=== PATIENT | female | born 1975 | race American Indian/Alaskan Native ===

== ENCOUNTER 2019-04-21 13:35 | Emergency (ER) | payer OTHER ==
[2019-04-21] MEDS ORDERED: IBUPROFEN 800 MG TAB PO ONE (14:45)
--- NOTE | 2019-04-21 14:55 | Emergency Department Report ---
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 Due to findings the following was ordered: ua cbc bmp pelvic US ED Disposition for MSE Condition: Stable
--- NOTE | 2019-04-21 16:38 | Emergency Department Report ---
ED Female HPI - General Chief complaint: Urogenital-Female Stated complaint: PELVIC PAIN Time Seen by Provider: 04/21/19 15:16 Source: patient Mode of arrival: Ambulatory Limitations: No Limitations - History of Present Illness Initial comments: This is a 43-year-old -[place] female who presents to the emergency room with pelvic pain for 3 days. Her last menstrual period was 04/11/2019, A0. Patient reports pelvic pain is intermittent, stabbing pain followed by pressure. States pain lasted for several days leave for 3-4 months and return. Patient states she has been doing with this pain for the last year. She had multiple ultrasounds with her etl informatica developer. Patient states the labs ultrasounds down and ovarian cyst which they were monitored. She also reports going to the etl informatica developer 2 weeks ago and placed on doxycycline for bacterial vaginitis which she is still taking male. She denies nausea, vomiting, fever or chills, urinary frequency, urgency, hematuria, dysuria, bleeding, or vaginal discharge. MD Complaint: pelvic pain Onset/Timin -: days(s) Location: suprapubic Radiation: non-radiating Severity: severe Severity scale (0 -10): 9 Quality: stabbing, other (pressure) Consistency: intermittent Improves with: none Worsens with: none Are you Now?: No Last Menstrual Period: 04/11/19 EDC: 01/16/20 Associated Symptoms: denies other symptoms - Related Data Sexually active: Yes : 1 Para: 1 A: 0 Previous Rx's Medication Instructions Recorded Last Taken Type traMADoL [Ultram 50 MG tab] 50 mg PO Q6HR PRN #12 tablet 04/21/19 Unknown Rx Allergies Allergy/AdvReac Type Severity Reaction Status Date / Time No Known Allergies Allergy Unverified 04/21/19 13:37 ED Review of Systems ROS: Stated complaint: PELVIC PAIN Other details as noted in HPI Constitutional: denies: chills, fever Respiratory: denies: cough, shortness of breath, wheezing Cardiovascular: denies: chest pain, palpitations Gastrointestinal: abdominal pain. denies: nausea, diarrhea Genitourinary: denies: urgency, dysuria, discharge Musculoskeletal: denies: back pain, joint swelling, arthralgia Skin: denies: rash, lesions Neurological: denies: headache, weakness, paresthesias Psychiatric: denies: anxiety, depression ED Past Medical Hx - Past Medical History Previous Medical History?: Yes Additional medical history: Bacterial vaginosis - Surgical History Past Surgical History?: No - Social History Smoking Status: Never Smoker Substance Use Type: None - Medications Home Medications: Home Medications Medication Instructions Recorded Confirmed Last Taken Type traMADoL [Ultram 50 MG tab] 50 mg PO Q6HR PRN #12 tablet 04/21/19 Unknown Rx ED Physical Exam - General Limitations: No Limitations General appearance: alert, in no apparent distress - Respiratory Respiratory exam: Present: normal lung sounds bilaterally. Absent: respiratory distress - Cardiovascular Cardiovascular Exam: Present: regular rate, normal rhythm. Absent: systolic murmur, diastolic murmur, rubs, gallop - GI/Abdominal GI/Abdominal exam: Present: soft, tenderness (suprapubic), normal bowel sounds. Absent: distended, guarding, rebound, rigid, organomegaly - Back Exam Back exam: Absent: CVA tenderness (R), CVA tenderness (L) - Neurological Exam Neurological exam: Present: alert, oriented X3, normal gait - Psychiatric Psychiatric exam: Present: normal affect, normal mood - Skin Skin exam: Present: warm, dry, intact, normal color. Absent: rash ED Course Vital Signs 04/21/19 13:38 Temperature 98.8 F Pulse Rate 78 Respiratory 18 Rate Blood Pressure 126/86 O2 Sat by Pulse 100 Oximetry ED Medical Decision Making - Lab Data Result diagrams: 04/21/19 15:35 04/21/19 15:35 Lab Results 04/21/19 04/21/19 04/21/19 Range/Units 15:35 15:35 15:35 WBC 9.6 (4.5-11.0) K/mm3 RBC 4.95 (3.65-5.03) M/mm3 Hgb 13.2 (10.1-14.3) gm/dl Hct 40.4 (30.3-42.9) % MCV 82 (79-97) fl MCH 27 L (28-32) pg MCHC 33 (30-34) % RDW 14.8 (13.2-15.2) % Plt Count 468 H (140-440) K/mm3 Lymph % (Auto) 21.1 (13.4-35.0) % [place] % (Auto) 4.3 (0.0-7.3) % Eos % (Auto) 0.4 (0.0-4.3) % Baso % (Auto) 0.6 (0.0-1.8) % Lymph # 2.0 (1.2-5.4) K/mm3 [place] # 0.4 (0.0-0.8) K/mm3 Eos # 0.0 (0.0-0.4) K/mm3 Baso # 0.1 (0.0-0.1) K/mm3 Seg Neutrophils % 73.6 H (40.0-70.0) % Seg Neutrophils # 7.0 (1.8-7.7) K/mm3 Sodium 141 (137-145) mmol/L Potassium 4.7 (3.6-5.0) mmol/L Chloride 102.0 (98-107) mmol/L Carbon Dioxide 20 L (22-30) mmol/L Anion Gap 24 mmol/L BUN 13 (7-17) mg/dL Creatinine 0.8 (0.7-1.2) mg/dL Estimated GFR > 60 ml/min BUN/Creatinine Ratio 16 % Glucose 87 (65-100) mg/dL Calcium 10.0 (8.4-10.2) mg/dL HCG, Qual Negative (Negative) - Radiology Data Radiology results: report reviewed Transvaginal pelvic ultrasound INDICATION: Right lower quadrant pain FINDINGS: The uterus measures 9 x 4 x 5 cm. The endometrial thickness is about 4 mm.. There are several fibroids identified within the uterus the largest of which located near the fundus measuring 3 cm in diameter. Both ovaries are normal in size. Normal Doppler flow within both ovaries. There is a small cyst/follicle measuring 1.5 cm in diameter within the right ovary. IMPRESSION: Fibroid uterus, as above. - Medical Decision Making This is a 43-year-old female who presents to the emergency room with pelvic pain for 3 days. Vitals stable. Patient given analgesics while in the ER. A BMP, CBC, and serum hCG was obtained. All labs are unremarkable. Pelvic and transvaginal ultrasound findings of several fibroids. Patient tolerating by mouth while in ER. Start tramadol for pain. Referral to [facility] for continued care. Patient will be discharged with strict return precautions and follow up with [facility] in 3-5 days. Critical care attestation.: If time is entered above; I have spent that time in minutes in the direct care of this critically ill patient, excluding procedure time. ED Disposition Clinical Impression: Pelvic pain Uterine fibroid Qualifiers: Uterine leiomyoma location: unspecified location Qualified Code(s): D25.9 - Leiomyoma of uterus, unspecified Disposition: TO HOME OR SELFCARE Is pt being admited?: No Condition: Stable Instructions: Uterine Fibroids (ED) Prescriptions: traMADoL [Ultram 50 MG tab] 50 mg PO Q6HR PRN #12 tablet PRN Reason: Pain Referrals: MARIO PALUMBO,TEAGAN [Other] - 3-5 Days STAN RINALDI MD [Staff Physician] - 3-5 Days [facility] [Provider Group] - 3-5 Days [facility] [Provider Group] - 3-5 Days Time of Disposition: 17:46
[2019-04-21 16:42] LABS: Basophils # (Auto) 0.1 K/mm3 (0.0-0.1); Basophils % (Auto) 0.6 % (0.0-1.8); Eosinophils % (Auto) 0.4 % (0.0-4.3); Hematocrit 40.4 % (30.3-42.9); Hemoglobin 13.2 gm/dl (10.1-14.3); Lymphocytes % (Auto) 21.1 % (13.4-35.0); Mean Corpuscular HGB Conc 33 % (30-34); Mean Corpuscular Volume 82 fl (79-97); Monocytes # (Auto) 0.4 K/mm3 (0.0-0.8); Monocytes % (Auto) 4.3 % (0.0-7.3); Platelet Count 468 K/mm3 (140-440); Red Blood Count 4.95 M/mm3 (3.65-5.03); Red Cell Distribution Width 14.8 % (13.2-15.2)
[2019-04-21 16:59] LABS: BUN/Creatinine Ratio 16; Blood Urea Nitrogen 13 mg/dL (7-17); Hemolysis Index 0
--- NOTE | 2019-04-21 17:25 | Ultrasound Report ---
Transvaginal pelvic ultrasound INDICATION: Right lower quadrant pain FINDINGS: The uterus measures 9 x 4 x 5 cm. The endometrial thickness is about 4 mm.. There are sever al fibroids identified within the uterus the largest of which located near the fundus measuring 3 cm in diameter. Both ovaries are normal in size. Normal Doppler flow within both ovaries. There is a sma ll cyst/follicle measuring 1.5 cm in diameter within the right ovary. IMPRESSION: Fibroid uterus, as above. Signer Name: Roberto Carlos Estrada MD Signed: 04/21/2019 5:21 PM Workstation Name: [id number]
[2019-04-21 18:12] VITALS: BP 125/72
== END 2019-04-21 17:56 | disposition home or self-care (01) ==
LOC: ED 13:35
DX: D25.9 Leiomyoma of uterus, unspecified (principal)
CPT/HCPCS: 36415; 76830; 76856; 80048; 84703; 85025